=== PATIENT | male | born 1995 | race Caucasian/White ===

== ENCOUNTER 2018-05-05 08:12 | Emergency (ER) | payer SELFPAY ==
[2018-05-05] MEDS ORDERED: Azithromycin 250 MG TAB ONE (09:24)
[2018-05-05] MEDS ORDERED: Lidocaine 1% (PF) 30 ML VIAL ONE (09:24)
[2018-05-05] MEDS ORDERED: cefTRIAXone\\ROCEPHIN 250 MG VIAL ONE (09:24)
--- NOTE | 2018-05-05 10:36 | ULT ---
SCROTAL ULTRASOUND WITH DOPPLER: Date: 05/05/18 PROVIDED CLINICAL HISTORY: Left-sided testicular pain. FINDINGS: Right testicle measures about 3.4 x 4.9 x 2.7 cm and demonstrates a normal Miller scale sonographic donny earance. Right epididymis appears normal. Left testicle measures about 3.7 x 4.8 x 2.9 cm and demonstrates mild heterogeneity without focal mas s. Left epididymis appears unremarkable, with the exception of a small cyst. Color Doppler and spectral analysis of the testicular waveforms demonstrates flow bilaterally. There is increased flow to the left testicle and left epididymis with respect to the right. IMPRESSION: Left epididymo-orchitis. POS: [facility]
[2018-05-08 14:15] LABS: Chlamydia by PCR DETECTED (NotDetected); GC by PCR Not Detected (NotDetected)
== END 2018-05-05 10:50 | disposition home or self-care (01) ==
LOC: ERS 08:12
DX: N45.3 Epididymo-orchitis (principal); F17.210 Nicotine dependence, cigarettes, uncomplicated
CPT/HCPCS: 76870; 87491; 87591; 93976; 96372; J0696; J2001